=== PATIENT | female | born 1970 | race Caucasian/White ===

== ENCOUNTER 2020-06-05 01:55 | Emergency (ER) | payer OTHER ==
[~2020-06-05] VITALS: Ht 170.2 cm; Wt 66.0 kg
[~2020-06-05 01:55] MED LIST: ACIDOPHILU4 PO; ALLEGRA180 MG PO; AMOXICILLIN500 MG PO; CALCIUM +D PO; DEPO-PROVER400 MG/ML IM; FIORICET 50-3001 CAP PO; IMURAN50 MG PO; LORTAB 10-325 M1 TAB PO; PERCOCET 5/325M1 TAB PO; PREDNISONE5 MG PO; PRILOSEC40 MG PO; QVAR80 MCG IN; SUDAFED NASAL D30 MG PO; VENTOLIN HF1 IN; XANAX0.5 MG PO
[2020-06-05 02:42] LABS: HEMATOCRIT 43.8 % (37.0-47.0); HEMOGLOBIN 14.6 g/dl (12.0-16.0); IMMATURE GRANULOCYTES 0.3 % (0.0-5.0); MEAN CELL VOLUME 103.8 fL CALC (80.0-100.0); MEAN CORPUSCULAR HGB 34.6 pG CALC (26.0-32.0); MEAN CORPUSCULAR HGB CONC 33.3 g/dL CAL (32.0-36.0); NEUT# 3.44 thou/uL (2.00-7.15); RED BLOOD COUNT 4.22 mill/uL (4.20-5.60); RED CELL DISTRI WIDTH 14.4 % (11.5-15.5)
[2020-06-05 02:55] LABS: ALKALINE PHOSPHATASE 146 u/l (38-126); AMYLASE 60 u/l (30-110); BUN 11 mg/dL (7-17); BUN/CREATININE RATIO 16 (12-20 (CALC)); CHLORIDE 112 mmol/l (95-108); CREATININE 0.7 mg/dL (0.5-1.0); GFR > 60 ML/MIN (>=60 (CALC)); GFR FOR AFR.AMER. > 60 ML/MIN (>=60 (CALC)); LIPASE 116 u/l (23-300); POTASSIUM 3.7 mmol/l (3.5-5.1); SGOT/AST 93 u/l (14-36); SODIUM 143 mmol/l (137-146); TOTAL PROTEIN 6.6 g/dL (6.3-8.2)
[2020-06-05 03:12] LABS: ANION GAP 15 (6-22 (CALC)); BILIRUBIN, TOTAL 0.3 mg/dL (0.0-1.4); CARBON DIOXIDE 20 mmol/l (22-30)
[2020-06-05 04:47] LABS: URINE BILIRUBIN - DIPSTICK NEGATIVE (NEGATIVE); URINE BLOOD DIPSTICK NEGATIVE (NEGATIVE); URINE COLOR YELLOW; URINE GLUCOSE - DIPSTICK NEGATIVE (NEGATIVE); URINE KETONE NEGATIVE (NEGATIVE); URINE LEUK ESTERASE NEGATIVE (NEGATIVE); URINE NITRITE - DIPSTICK NEGATIVE (Negative); URINE PROTEIN - DIPSTICK NEGATIVE (NEG-TRACE); URINE SPECIFIC GRAVITY <=1.005; URINE UROBILINOGEN - DIPSTICK 0.2 E.U./dL (0.2)
[2020-06-05] MEDS ORDERED: OMEPRAZOLE DR40 MG PO (05:05)
[2020-06-05 05:40] VITALS: BP 116/66
[2020-06-05] MEDS ORDERED: ZOFRAN4 MG/TAB PO (05:46)
== END 2020-06-05 05:40 | disposition home or self-care (01) | DRG 392 ==
LOC: ED 01:55
PROVIDERS: Family Medicine
DX: K29.70 Gastritis, unspecified, without bleeding (principal); R42 Dizziness and giddiness; K21.9 Gastro-esophageal reflux disease without esophagitis; J45.909 Unspecified asthma, uncomplicated; F17.210 Nicotine dependence, cigarettes, uncomplicated
CPT/HCPCS: Q9967; S0164

== ENCOUNTER 2020-12-15 06:36 | Emergency (ER) | payer OTHER ==
[~2020-12-15] VITALS: Ht 170.2 cm; Wt 67.0 kg
[~2020-12-15 06:36] MED LIST changes: +OMEPRAZOLE DR40 MG PO; +ZOFRAN4 MG/TAB PO
[2020-12-15] MEDS ORDERED: FLOVENT HF220 MCG/AC (07:05)
[2020-12-15] MEDS ORDERED: ACYCLOVIR400 MG PO (07:06)
[2020-12-15] MEDS ORDERED: ZYRTEC10 MG PO (07:06)
[2020-12-15] MEDS ORDERED: CELEBREX100 M1 PO (07:07)
[2020-12-15] MEDS ORDERED: [UNRECOGNIZED DRUG - OTHER] (07:08)
[2020-12-15 07:26] LABS: URINE BLOOD DIPSTICK MODERATE (NEGATIVE); URINE COLOR YELLOW; URINE GLUCOSE - DIPSTICK NEGATIVE (NEGATIVE); URINE KETONE 40 mg/dL (NEGATIVE); URINE LEUK ESTERASE NEGATIVE (NEGATIVE); URINE PROTEIN - DIPSTICK TRACE mg/dL (NEG-TRACE); URINE UROBILINOGEN - DIPSTICK 0.2 E.U./dL (0.2)
[2020-12-15 07:28] LABS: HEMATOCRIT 39.3 % (37.0-47.0); HEMOGLOBIN 13.1 g/dl (12.0-16.0); IMMATURE GRANULOCYTES 0.8 % (0.0-5.0); MEAN CELL VOLUME 103.1 fL CALC (80.0-100.0); MEAN CORPUSCULAR HGB 34.4 pG CALC (26.0-32.0); MEAN CORPUSCULAR HGB CONC 33.3 g/dL CAL (32.0-36.0); NEUT# 1.82 thou/uL (2.00-7.15); RED BLOOD COUNT 3.81 mill/uL (4.20-5.60); RED CELL DISTRI WIDTH 16.6 % (11.5-15.5)
[2020-12-15 07:34] LABS: URINE BILIRUBIN - DIPSTICK MODERATE (NEGATIVE); URINE NITRITE - DIPSTICK NEGATIVE (Negative)
[2020-12-15 07:39] LABS: ALBUMIN 4.3 g/dL (3.2-5.0); ALKALINE PHOSPHATASE 168 u/l (38-126); ANION GAP 14 (6-22 (CALC)); BILIRUBIN, TOTAL 1.3 mg/dL (0.0-1.4); BUN 6 mg/dL (7-17); BUN/CREATININE RATIO 12 (12-20 (CALC)); CARBON DIOXIDE 23 mmol/l (22-30); CHLORIDE 101 mmol/l (95-108); CREATININE 0.5 mg/dL (0.5-1.0); GFR > 60 ML/MIN (>=60 (CALC)); GFR FOR AFR.AMER. > 60 ML/MIN (>=60 (CALC)); POTASSIUM 3.5 mmol/l (3.5-5.1); SGOT/AST 60 u/l (14-36); SODIUM 134 mmol/l (137-146); TOTAL PROTEIN 7.6 g/dL (6.3-8.2)
[2020-12-15 07:50] LABS: MYOGLOBIN 102 ng/mL (0 - 62)
[2020-12-15] MEDS ORDERED: MEDDOSEPAK PO (09:07)
[2020-12-15 09:10] VITALS: BP 106/65
== END 2020-12-15 09:12 | disposition home or self-care (01) | DRG 203 ==
LOC: ED 06:36
PROVIDERS: Emergency Medicine
DX: J45.901 Unspecified asthma with (acute) exacerbation (principal); F17.200 Nicotine dependence, unspecified, uncomplicated; Z20.822 Contact with and (suspected) exposure to COVID-19